=== PATIENT | female | born 1950 | race Caucasian/White ===

== ENCOUNTER 2020-01-26 03:13 | Emergency (ER) | payer MEDICARE, OTHER ==
[~2020-01-26] VITALS: Ht 157.5 cm; Wt 65.0 kg
[2020-01-26] MEDS ORDERED: acetaminophen 325mg tablet PO ONE (03:40)
[2020-01-26] MEDS ORDERED: ketorolac trometh inj. 60 MG/2 ML VIAL IM ONE (03:40)
[2020-01-26 03:50] VITALS: BP 128/69
== END 2020-01-26 03:51 | disposition home or self-care (01) ==
LOC: ER 03:14
DX: M54.2 Cervicalgia (principal); F12.90 Cannabis use, unspecified, uncomplicated; Z90.710 Acquired absence of both cervix and uterus; Z72.89 Other problems related to lifestyle; Z88.5 Allergy status to narcotic agent
CPT/HCPCS: 96372; 99283; J1885